=== PATIENT | male | born 1955 | race Caucasian/White ===

== ENCOUNTER 2017-08-19 04:12 | Emergency (ER) | payer OTHER ==
[2017-08-19 04:25] VITALS: BP 144/96
--- NOTE | 2017-08-19 04:40 | EDM.PDOC ---
ED HPI GENERAL MEDICAL PROBLEM - General Chief Complaint: Flank Pain Stated Complaint: FLANK PAIN Time Seen by Provider: 08/19/17 04:25 Source of Information: Reports: Patient, Family History Limitations: Reports: No Limitations - History of Present Illness INITIAL COMMENTS - FREE TEXT/NARRATIVE: 62-year-old male presents to the ED lucho. Pain came on rather abruptly on Thursday i.e. 2 days ago. Pain has gradually progressed in intensity and is aggravated by movement particularily getting out of the vehicle ,getting in bed etc. Patient has had some issues with chronic low back pain but usually settles after a day or 2. He did mow the grass on Thursday and had to lift bags and of the mid to the back of the half-time which involved a lot of twisting turning and heavy lifting.Pain has occasionally made him nauseated. This morning he got up to void and hen he stood up from the toilet he felt dizzy lightheaded and like he was going to pass out. He did yellow to his but in the meantime he sat down hard on the floor banged his head on the wall. Never lost consciousness completely.He does remember being in severe pain when this occurred. Increased vagal tone may have dropped his heart rate and thus his blood pressure. Was able to sleep earlier suggesting that once he is not moving the pain is not near as severe. this would suggest a musculoskeletal source of his painHe has not seen any blood in his urine. However he has not looked either. Onset: Gradual Onset Date: 08/17/17 Duration: Day(s):, Getting Worse Location: Reports: Back (right lower back.) Quality: Reports: Ache, Sharp, Stabbing (with standing getting in and out of the car and getting in and out of bed. 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: Other (see below) Right Flank Pain Score (Numeric/FACES): 7 - Related Data Allergies Allergy/AdvReac Type Severity Reaction Status Date / Time No Known Allergies Allergy Verified 07/07/15 13:26 Home Meds: Home Meds Hydroclorathiazide-Atenolol 1 tab PO DAILY 07/07/15 [History] Past Medical History Cardiovascular History: Reports: Hypertension - Past Surgical History Musculoskeletal Surgical History: Reports: Other (See Below) Other Musculoskeletal Surgeries/Procedures:: hand sx Social & Family History - Family History Family Medical History: Noncontributory - Tobacco Use Smoking Status *Q: Never Smoker - Recreational Drug Use Recreational Drug Use: No - Living Situation & Occupation Living situation: Reports: ED ROS GENERAL - Review of Systems Review Of Systems: See Below Constitutional: Denies: Fever, Chills, Malaise, Weakness, Fatigue, Decreased Appetite, Weight Loss HEENT: Reports: No Symptoms Respiratory: Reports: No Symptoms Cardiovascular: Reports: No Symptoms Endocrine: Reports: No Symptoms GI/Abdominal: Reports: Abdominal Pain (feels a little bit of pain in his right lateralabdominalwall along the posterior iliac crest.) : Reports: No Symptoms Musculoskeletal: Reports: Back Pain (pain inferior to the kidney) Skin: Reports: No Symptoms (lumbar spine facet joint area) Neurological: Reports: No Symptoms Psychiatric: Reports: No Symptoms ED EXAM,LOWER BACK PAIN/INJURY - Physical Exam Exam: See Below Exam Limited By: No Limitations General Appearance: Alert, WD/WN, No Apparent Distress Throat/Mouth: Normal Inspection, Normal Lips, Normal Oropharynx Head: Atraumatic, Normocephalic Neck: Normal Inspection, Supple, Non-Tender, Full Range of Motion. No: Lymphadenopathy (L), Lymphadenopathy (R) Respiratory/Chest: No Respiratory Distress, Lungs Clear, Normal Breath Sounds Cardiovascular: Normal Peripheral Pulses, Regular Rate, Rhythm, No Edema, No Gallop, No Murmur GI/Abdominal: Normal Bowel Sounds, Soft, Non-Tender, No Organomegaly, No Abnormal Bruit, No Mass, Pelvis Stable, Other (no surgical scars.) Back Exam: Other (his very minimal spasm on palpation of the overlying paraspinal musculature on either side of his lumbar spine. Cannot really localize any one facet joint does be his source of pain.). No: CVA Tenderness ( L), CVA Tenderness (R) Extremities: Normal Inspection, Normal Range of Motion, Non-Tender, No Pedal Edema Neurological: Straight Leg Raise (R) (positive on the right with spasm of his low back.) Skin Exam: Warm, Dry, Intact, Normal Color, No Rash Course - Vital Signs Last Recorded V/S: Last Vital Signs Temp 36.6 C 08/19/17 04:20 Pulse 66 08/19/17 04:20 Resp 16 08/19/17 04:20 BP 144/96 H 08/19/17 04:20 Pulse Ox 100 08/19/17 04:20 - Orders/Labs/Meds Orders: Active Orders 24 hr Category Date Time Status URINALYSIS W/MICROSCOPIC [UA W/MICROSCOPIC] [URIN] Stat Lab 08/19/17 05:05 Ordered Labs: Laboratory Tests 08/19/17 Range/Units 05:05 Urine Color Yellow (Yellow) Urine Appearance Clear (Clear) Urine pH 6.0 (5.0-8.0) Ur Specific [place] 1.025 (1.005-1.030) Urine Protein Trace H (Negative) Urine Glucose (UA) Negative (Negative) Urine Ketones Negative (Negative) Urine Occult Blood Negative (Negative) Urine Nitrite Negative (Negative) Urine Bilirubin Negative (Negative) Urine Urobilinogen 0.2 (0.2-1.0) Ur Leukocyte Esterase Negative (Negative) Urine RBC 0-5 (0-5) /hpf Urine WBC 0-5 (0-5) /hpf Ur Epithelial Cells 0-5 (0-5) /hpf Urine Bacteria Not seen (FEW) /hpf Urine Mucus Many H (FEW) /hpf - Radiology Interpretation Free Text/Narrative:: 62-year-old male presents to the ED with diffuse right low back pain of 2 days' duration. It just became much worse tonight after he got up to void. The difficulty getting him back into bed due to the severity of the pain. He was mowing the grass on Thursday and had a dumpheavy grass into the back of a half tongue. He may well of strained his facet joints at that time. He has no radiculopathy down the leg. His concern was whether or not he may have a kidney stone. He has no history of this. Plan urinalysis will be done. Not localize any one area in his back to suggest a source for his back pain. If urinalysis is negative will have plain films done of his lumbar spine. CT Results Date: 08/19/17 (06:00 CT of the head and pelvis done per renal protocol.He has slightly dilated right renal pelvis but the ureter itself is not dilated all way down to the pelvis. Is a stone close to the bladder but it appears to be outside the ureter. A fairly largecyst on the left kidney but the ureter itself is normal and there are no stones within the renal parenchyma bilaterally.There are at least 2 gallstones within the gallbladder. Does have a moderate hiatal hernia. Is normal spleen is normal liver appears heterogenous and normal. There is a large amount of stool throughout the colon. This accounts for his very active bowel sounds on exam I think increased vagal tone that made him pass out tonight. CT of the lumbar spine essentially shows well maintained disc spaces and only minimal degenerative arthritic changes in the facet joints. Need to place him on anti-inflammatory Aleve 2 tablets every 8 hours for the next 3-4 days until the pain and inflammation settles down.) - Re-Assessments/Exams Free Text/Narrative Re-Assessment/Exam: 08/19/17 05:31 Urinalysis reveals no blood on the dipstick. The micro-analysis is pending.Going to go ahead and CT his abdomen and pelvis per renal protocol and reconstruct his lumbar spine in the same fashion. 08/19/17 06:28 CT of the lumbar spine was carried out. It reveals mild circumflex circumferential disc bulge at L2-L3 with posterior discretaining and a's concave margin. No central canal stenosis or neural foraminal stenosis is seen.At the L3-L4 level there is circumferential disc bulge seenposterior disc shows a planar margin prominent degenerative changes seen within the apophyseal joints findings cause moderate central canal stenosis the neural foramina are patent but the left L3 nerve root slightly touches a bulging disc outside the left neural foramina. L4-L5 minimal circumferential disc bulge noted minimal central canal stenosis is noted neural foramina are patent. L5-S1 level shows mild degenerative apophyseal change throughout very mild diffuse posterior disc bulges seen no central canal stenosis or neural foraminal stenosis is seen. The disks from T11-T12 level to the L1-L2 level also appear to be within normal limits. CT of the abdomen and pelvis per renal protocol shows a 4.6 cm cyst on the left kidney. The right kidney shows a smaller cyst measuring 1.5 cm. Right left ureter show no dilatation and no abnormal calcifications are noted along the course of the ureters.All to moderate sized hiatal hernia is appreciated. 2- 3 small gallstones are present. Aorta shows atherosclerotic change without any aneurysm. Fat-containing left inguinal hernia is noted. Appendix is seen containing stool ir without findings of appendicitis. Patient was discharged to home he will use Aleve 2 tablets every 8 hours to get his back pain under control. Advised that he may need to take some MiraLAX powder 17 g 1 scoop daily to keep his bowel function regular although she's not really had positive his bowel function in the past. Departure - Departure Time of Disposition: 06:06 Disposition: Home, Self-Care 01 Condition: Fair Clinical Impression: Orthostatic syncope, Constipation by delayed colonic transit Lumbar back sprain Qualifiers: Encounter type: initial encounter Qualified Code(s): S33.5XXA - Sprain of ligaments of lumbar spine, initial encounter Cholelithiasis Qualifiers: Cholelithiasis location: gallbladder Cholecystitis presence: without cholecystitis Biliary obstruction: without biliary obstruction Qualified Code(s) : K80.20 - Calculus of gallbladder without cholecystitis without obstruction - Discharge Information Instructions: Low Back Sprain, Cholelithiasis, [id number] Referrals: Marlo Reinoso Jr, MD [Primary Care Provider] - Forms: ED Department Discharge Additional Instructions: evaluation the emergency room tonight in regards to a syncopal event that occurred after sitting on the toilet and trying to get back up in the middle the night. Something caused her blood pressure to drop acutely or heart rate that dropped her blood pressure and made to pass out. Unclear what did this for sure. You have been experiencing a good deal of right low back pain the last 48 hourswith no apparent injury. Concern arose whether or not she may be passing a kidney stone.Urinalysis did not show any signs of blood in the urine to support this diagnosis.However your history was still suggestive of possible kidney stone as well aslow back pain. Decision made to CT her abdomen pelvis per renal protocoland this revealedseveral small gallstones but no signs of any kidney stones. Left kidney has a large cyst on it which is something were born with is of no consequence. Both ureters however are clear all way down to the urinary bladder and prostate is normal in size. A good deal of stool is seen scattered throughout the colon compatible with mild constipation. All sounds remained very active a be contributing to some abdominal pain and nausea. Suggest treatment with Aleve 2 tablets every 8 hours until back pain settles down. Follow-up with personal physician if any further problems occur. - My Orders Last 24 Hours: My Active Orders 08/19/17 05:05 URINALYSIS W/MICROSCOPIC [UA W/MICROSCOPIC] [URIN] Stat - Assessment/Plan Last 24 Hours: My Active Orders 08/19/17 05:05 URINALYSIS W/MICROSCOPIC [UA W/MICROSCOPIC] [URIN] Stat
--- NOTE | 2017-08-19 06:16 | CT ---
CT abdomen and pelvis Technique: Multiple axial sections were obtained from above the dome of the diaphragm inferiorly to the pubic symphysis. Intravenous and oral contrast not utilized. Study has been performed as a ureteral stone protocol. Findings: Kidneys show no abnormal calcifications. Left kidney shows a cyst measuring 4.6 cm. Right kidney shows a smaller cyst measuring 1.5 cm. Right and left ureters show no dilatation. No abnormal calcifications are seen along the course of the ureters. Visualized lung bases shows nothing acute. Liver shows no focal parenchymal abnormality. Spleen appears within normal limits. 3 small and calcified gallstones are seen within the gallbladder. Adrenal glands show no nodule. Pancreas is unremarkable. Aorta shows atherosclerotic change without aneurysm. No retroperitoneal adenopathy or mesenteric abnormalities are seen. No pelvic mass or adenopathy is seen. Fat-containing left inguinal hernia is noted. No free fluid or inflammatory change is seen. Appendix is seen containing stool and air without findings of appendicitis. Impression: 1. Incidental renal cysts. No renal calculi, ureteral dilatation or ureteral stone is seen. 2. 3 small calcified gallstones within the gallbladder. 3. No additional abnormality is seen on noncontrast CT study of the abdomen and pelvis. Diagnostic code #2
--- NOTE | 2017-08-19 06:20 | CT ---
CT lumbar spine Technique: Multiple axial sections were obtained from top of T11 inferiorly through the sacrum. Reconstructed sagittal and coronal images were reviewed. Findings: L2-L3: Mild circumferential disc bulge is seen. Posterior disc maintains a concave margin. No central canal stenosis or neural foraminal stenosis is seen. L3-L4: Circumferential disc bulge is seen. Posterior disc shows a planar margin. Prominent degenerative change is seen within the apophyseal joints. Findings cause moderate central canal stenosis. Neural foramina are patent but the left L3 nerve root slightly touches a bulging disc outside the left neural foramina. L4-L5: Minimal circumferential disc bulge is noted. Minimal central canal stenosis is seen. Neural foramina are patent. L5-S1: Mild degenerative apophyseal change is seen. Very mild diffuse posterior disc bulge is present. No central canal stenosis or neural foraminal stenosis is seen. Other disks from the T11-T12 level through the L1-L2 level appear within normal limits. Scattered endplate osteophytes are seen anteriorly. No fracture is seen. Impression: 1. Disc bulging as noted above. Degenerative apophyseal change is seen at L3-L4. Moderate central canal stenosis noted at L3-L4. 2. Other degenerative change as noted above. Diagnostic code #3
== END 2017-08-19 06:18 | disposition home or self-care (01) ==
LOC: JD.ED 04:12
DX: K80.20 Calculus of gallbladder without cholecystitis without obstruction (principal); S33.5XXA Sprain of ligaments of lumbar spine, initial encounter; K59.01 Slow transit constipation; I10 Essential (primary) hypertension; R55 Syncope and collapse; Z79.899 Other long term (current) drug therapy; X58.XXXA Exposure to other specified factors, initial encounter
CPT/HCPCS: 72131; 72131-26; 74176; 74176-26; 81001; 99284; 99284-25